=== PATIENT | female | born 1995 | race Caucasian/White ===

== ENCOUNTER → 2020-02-01 | Outpatient (CLI) | payer BC, SELFPAY ==
[2020-02-01 09:32] VITALS: BMI 31.7
[2020-02-01 15:08] LABS: Amphetamine Urine VISTA NEGATIVE (<1000 ng/mL); Barbiturate Urine VISTA NEGATIVE (< 200 ng/mL); Benzodiazepine Urine VISTA NEGATIVE (< 200 ng/mL); Cocaine Urine VISTA NEGATIVE (< 300 ng/mL); Ecstacy Urine VISTA NEGATIVE (< 500 ng/mL); Methadone Urine VISTA NEGATIVE (< 300 ng/mL); PCP Urine VISTA NEGATIVE (< 25 ng/mL); THC Urine VISTA NEGATIVE (< 50 ng/mL); Vista UDS pH Range 6
[2020-02-01 16:54] LABS: Chlamydia Trachomatis by PCR Negative (Negative); Neisserai gonorrhoeae by PCR Negative (Negative); Probe Check PASS; Sample Adequacy Control PASS; Specimen Processing Control PASS
== END | disposition home or self-care (01) ==
LOC: LABSPEC 12:48
PROVIDERS: Referring Provider Obstetrics & Gynecology; Visit Provider Obstetrics & Gynecology
DX: Z34.90 Encounter for supervision of normal pregnancy, unspecified, unspecified trimester (principal)
CPT/HCPCS: 80307; 87086; 87088; 87491; 87591

== ENCOUNTER → 2020-02-12 | Outpatient (CLI) | payer BC, SELFPAY ==
[2020-02-01 09:32] VITALS: BMI 31.7
[2020-02-12 09:28] LABS: Absolute Lymphocyte Count 2.04 X10^3/uL (0.83-4.51); Absolute Neutrophil Count 4.9 X10^3/uL (2.0-7.7); Basophil# 0.05 X10^3/uL; Basophil% 0.7 % (0-1); Eosinophils% 1.3 % (0-5); Hematocrit 38.5 % (37-47); Hemoglobin 13.3 g/dL (12.0-15.0); Lymphocyte # 2.04 X10^3/ul (4.0); Mean Corp Hgb Conc 34.5 g/dL (32-36); Mean Corpuscular Hgb 31.1 pg (27.0-32.0); Mean Corpuscular Volume 90.2 fL (81-99); Mean Platelet Vol. 9.2 fl (6.2-12.0); Monocyte# 0.41 X10^3/uL; Monocyte% 5.4 % (0-10); NRBC Flagged by Analyzer 0 % (0-5); Neutrophil # 4.93 X10^3/uL (2.7-7.7); Neutrophil % 65.3 % (47-70); Platelet Count 307 K/mm3 (150-450); RBC Distribution Width CV 12.4 % (11.6-14.6); RBC Distribution Width SD 40.4 fl (35.1-43.9); Red Blood Count 4.27 M/mm3 (4.2-5.4); White Blood Count 7.6 K/mm3 (4.4-11.0)
[2020-02-12 09:52] LABS: T4 Free Direct 1.29 ng/dL (0.76-1.46); Thyroid Stim Hormone (TSH) 3.76 uIU/mL (0.358-3.74)
[2020-02-12 10:24] LABS: HIV - WCH Non-Reactive (Nonreactive); Hepatitis B Surface Antigen Non-Reactive (Nonreactive); Hepatitis C Antibody Non-Reactive (Nonreactive); Rubella IgG 119.1 IU/mL
[2020-02-15 02:15] LABS: Rapid Plasmin Reagin (RPR) NONREACTIVE (NONREACTIVE)
== END | disposition home or self-care (01) ==
PROVIDERS: PCP Family Medicine; Referring Provider Obstetrics & Gynecology; Visit Provider Obstetrics & Gynecology
DX: O99.281 Endocrine, nutritional and metabolic diseases complicating pregnancy, first trimester (principal); E03.9 Hypothyroidism, unspecified; Z3A.00 Weeks of gestation of pregnancy not specified
CPT/HCPCS: 36415; 84439; 84443; 85025; 86592; 86703; 86762; 86803; 86850; 86900; 86901; 87340

== ENCOUNTER → 2020-03-06 | Outpatient (CLI) | payer BC, SELFPAY ==
[2020-03-01 08:13] VITALS: BMI 31.7
[2020-03-06 09:16] LABS: Glucose Challenge Gest 1H 50g 108 mg/dL (70-140)
== END | disposition home or self-care (01) ==
LOC: PAVLAB 08:05
PROVIDERS: PCP Family Medicine; Referring Provider Obstetrics & Gynecology; Visit Provider Obstetrics & Gynecology
DX: Z34.90 Encounter for supervision of normal pregnancy, unspecified, unspecified trimester (principal)
CPT/HCPCS: 36415; 82950

== ENCOUNTER → 2020-04-25 | Outpatient (CLI) | payer BC, SELFPAY ==
[2020-04-25 08:25] VITALS: BMI 32.1
[2020-04-25 09:12] LABS: Thyroid Stim Hormone (TSH) 3.35 uIU/mL (0.358-3.74)
== END | disposition home or self-care (01) ==
LOC: PAVLAB 08:40
PROVIDERS: Nurse Practitioner Women's Health; PCP Family Medicine; Referring Provider Obstetrics & Gynecology; Visit Provider Obstetrics & Gynecology
DX: Z13.29 Encounter for screening for other suspected endocrine disorder (principal)
CPT/HCPCS: 36415; 84443

== ENCOUNTER → 2020-06-10 08:03 | Outpatient (CLI) | payer BC, SELFPAY ==
[2020-05-20 08:14] VITALS: BMI 32.6
[2020-06-10 08:25] LABS: Absolute Lymphocyte Count 1.81 X10^3/uL (0.83-4.51); Absolute Neutrophil Count 5.9 X10^3/uL (2.0-7.7); Basophil# 0.03 X10^3/uL; Basophil% 0.4 % (0-1); Eosinophil# 0.09 X10^3/uL; Eosinophils% 1.1 % (0-5); Hematocrit 37.7 % (37-47); Hemoglobin 12.6 g/dL (12.0-15.0); Lymphocyte # 1.81 X10^3/ul (4.0); Lymphocyte % 21.7 % (19-41); Mean Corp Hgb Conc 33.4 g/dL (32-36); Mean Corpuscular Hgb 31.3 pg (27.0-32.0); Mean Corpuscular Volume 93.5 fL (81-99); Mean Platelet Vol. 8.6 fl (6.2-12.0); Monocyte# 0.47 X10^3/uL; Monocyte% 5.6 % (0-10); NRBC Flagged by Analyzer 0 % (0-5); Neutrophil # 5.91 X10^3/uL (2.7-7.7); Neutrophil % 70.7 % (47-70); Platelet Count 259 K/mm3 (150-450); RBC Distribution Width CV 12.9 % (11.6-14.6); RBC Distribution Width SD 44.4 fl (35.1-43.9); Red Blood Count 4.03 M/mm3 (4.2-5.4); White Blood Count 8.4 K/mm3 (4.4-11.0)
[2020-06-10 08:49] LABS: Glucose Challenge Gest 1H 50g 89 mg/dL (70-140); Thyroid Stim Hormone (TSH) 3.13 uIU/mL (0.358-3.74)
== END ==
PROVIDERS: PCP Family Medicine; Referring Provider Obstetrics & Gynecology; Visit Provider Obstetrics & Gynecology
DX: O99.280 Endocrine, nutritional and metabolic diseases complicating pregnancy, unspecified trimester (principal); E03.9 Hypothyroidism, unspecified; Z3A.00 Weeks of gestation of pregnancy not specified; Z13.1 Encounter for screening for diabetes mellitus
CPT/HCPCS: 82950; 84443; 85025

== ENCOUNTER → 2020-08-08 08:55 | Outpatient (CLI) | payer BC, SELFPAY ==
[2020-08-08 08:54] VITALS: BMI 34.4
[2020-08-08 09:08] LABS: Absolute Lymphocyte Count 1.68 X10^3/uL (0.83-4.51); Absolute Neutrophil Count 6.5 X10^3/uL (2.0-7.7); Basophil# 0.05 X10^3/uL; Basophil% 0.6 % (0-1); Eosinophil# 0.06 X10^3/uL; Eosinophils% 0.7 % (0-5); Hemoglobin 13.6 g/dL (12.0-15.0); Lymphocyte # 1.68 X10^3/ul (4.0); Lymphocyte % 18.9 % (19-41); Mean Corpuscular Hgb 31.3 pg (27.0-32.0); Mean Platelet Vol. 9.1 fl (6.2-12.0); Monocyte# 0.54 X10^3/uL; Monocyte% 6.1 % (0-10); NRBC Flagged by Analyzer 0 % (0-5); Neutrophil # 6.49 X10^3/uL (2.7-7.7); Neutrophil % 73.1 % (47-70); Platelet Count 267 K/mm3 (150-450); RBC Distribution Width CV 12.7 % (11.6-14.6); RBC Distribution Width SD 42.5 fl (35.1-43.9); Red Blood Count 4.35 M/mm3 (4.2-5.4); White Blood Count 8.9 K/mm3 (4.4-11.0)
[2020-08-08 09:21] LABS: Protein, Urine (Random) < 6.0 mg/dL (<11.9)
[2020-08-08 09:23] LABS: ALB/GLOB Ratio 0.6 RATIO (0.9-2.4); AST(SGOT) 26 U/L (15-37); Alanine Aminotransfer ALT/SGPT 42 U/L (13-56); Albumin, Serum 2.8 g/dL (3.2-5.0); Alkaline Phosphatase 175 U/L (45-117); Anion Gap 5 (5-15); BUN 10 mg/dL (7-18); BUN/Creat Ratio 13.2 RATIO (10-20); Chloride 106 mmol/L (98-107); Creatinine, Serum 0.76 mg/dL (0.55-1.02); EST Glomerular Filtration Rate 97 mL/min (>60); Est Glom Filt Rate - Afr Amer 118 mL/min (>60); Globulin 4.4 g/dL (2.2-4.2); Glucose 70 mg/dL (74-106); Potassium 3.8 mmol/L (3.5-5.1); Protein, Total 7.2 g/dL (6.4-8.2); Sodium Level 138 mmol/L (136-145)
== END ==
PROVIDERS: PCP Family Medicine; Referring Provider Obstetrics & Gynecology; Visit Provider Obstetrics & Gynecology
DX: O13.9 Gestational [pregnancy-induced] hypertension without significant proteinuria, unspecified trimester (principal); O09.90 Supervision of high risk pregnancy, unspecified, unspecified trimester; Z3A.00 Weeks of gestation of pregnancy not specified
CPT/HCPCS: 36415; 80053; 82570; 84156; 85025; 87081

== ENCOUNTER → 2020-08-09 10:11 | Outpatient (CLI) | payer BC, SELFPAY ==
[2020-08-08 08:54] VITALS: BMI 34.4
--- NOTE | 2020-08-09 10:14 | US_ITS ---
STUDY: SECOND AND THIRD TRIMESTER OBSTETRICAL ULTRASOUND - LIMITED REASON FOR EXAM: Female, 25 years old GROWTH LMP: 11/29/2020. PRIOR ULTRASOUND: None. TECHNIQUE: Transabdominal TECHNICAL QUALITY: Adequate. FINDINGS: There is a single intrauterine fetus. The fetus is in a cephalic presentation. There is demonstrated cardiac activity with a heart rate of 132 bpm. There is a normal amniotic fluid volume. The largest amniotic fluid pocket measures 6.7 cm. The amniotic fluid index (CATHY) is 13.6 cm. The placenta is anterior in location and is not low lying. There are Grade 2 placental changes. The cervix was not visualized due to the head positioning. BIOMETRY: BPD: 8.57 cm: 34 weeks, 3 days HC: 31.53 cm: 35 weeks, 2 days AC: 32.3 cm: 36 weeks, 1 days FL: 6.91 cm: 35 weeks, 3 days Age by LMP: 36 weeks, 1 days. JUNO by LMP: 09/05/2020. age by current US: 35 weeks, 2 days. JUNO by current US: 09/11/2020. Estimated weight: 2783 grams, +/- 418 grams, 44 percentile. US/OB Limited With Biometrics IMPRESSION: Single live intrauterine gestation with a mean gestational age of 35 weeks and 2 days. Electronically Signed: Denny Salcedo MD at 15:22 EST , Service support ,
== END ==
PROVIDERS: PCP Family Medicine; Referring Provider Obstetrics & Gynecology; Visit Provider Obstetrics & Gynecology
DX: O13.9 Gestational [pregnancy-induced] hypertension without significant proteinuria, unspecified trimester (principal); Z3A.00 Weeks of gestation of pregnancy not specified
CPT/HCPCS: 76816

== ENCOUNTER → 2020-08-12 15:15 | Outpatient (CLI) | payer BC, SELFPAY ==
[2020-08-12 08:55] VITALS: BMI 33.9
== END ==
PROVIDERS: PCP Family Medicine; Referring Provider Obstetrics & Gynecology; Visit Provider Obstetrics & Gynecology
DX: O09.93 Supervision of high risk pregnancy, unspecified, third trimester (principal); Z3A.00 Weeks of gestation of pregnancy not specified
CPT/HCPCS: 87635; C9803; U0005; U0003

== ENCOUNTER 2020-08-15 06:50 | Inpatient (IN) | payer BC, SELFPAY ==
[2020-08-12 08:55] VITALS: BMI 33.9
[2020-08-15] VITALS (43 sets, daily range): BP systolic 92–141; BP diastolic 53–101; PULSE 58–146; RESP 18; TEMP 36.4–37.1; O2SAT 89–100; BMI 34.0
[2020-08-15] MEDS: Lactated Ringers 1,000 ML 50 ML IV (07:30)
[2020-08-15] MEDS: Oxytocin 30 units/NS 500 ml 30 UNITS/500 ML IV.SOLN IV (07:53)
--- NOTE | 2020-08-15 08:01 | NURSING ---
0750 mitul type and screen, cbc, and cmp from right hand and sent to lab.
--- NOTE | 2020-08-15 08:22 | HP.PCM_ITS ---
- Problem List (1) Encounter for induction of labor Status: Acute (2) Gestational hypertension Status: Acute Qualifiers: Comment: labs, nst, US, home bp cuff, discussed if persistent recommend IOL 37 weeks. (3) History of tetanus, diphtheria, and acellular pertussis booster vaccination (Tdap) Status: Acute Comment: 06/10/20 (4) Hypothyroid Status: Acute Qualifiers: Comment: Dr Lucio PCP manages. tsh q trimester. 04/25:WNL (5) Influenza vaccination administered at current visit Status: Acute Comment: 03/01/2020sc (6) Obesity affecting Status: Acute Qualifiers: Comment: bmi 31. 1 tm glucola/wnl. encouraged healthy weight gain (7) Status: Acute Qualifiers: Comment: genetic, carrier, and ntd screening discussed. genetic low risk; normal anatomy (8) Supervision of high-risk Status: Acute Qualifiers: Comment: PRR JUNO 09/05/20 Girl Rachel, Saurav History and Physical Date of Admission: 08/15/20 Intake Vital Signs 08/12/20 Height 5 ft 4 in 08/12/20 Weight: 197 lb 8 oz 08/12/20 BMI 33.9 08/12/20 BP 120/90 H Intake Visit Reasons: OB/NST per Agency Sales Director Required: No Is patient in pain?: No Allergies No Known Allergies Allergy (Verified 08/12/20 08:55) Medications levothyroxine 50 mcg tablet 50 mcg PO DAILY 02/01/20 [History Confirmed 08/12/20] vitamin #56-iron 35 mg and 5 mg-folic acid 1 mg-dha capsule 1 cap PO DAILY 02/01/20 [History Confirmed 08/12/20] blood pressure monitor See Rx Instructions .ROUTE .MEDSUPPLY #1 ea 08/08/20 [Rx Confirmed 08/12/20] Last Menstral Period: 11/30/19 Zika: Zika virus screening: Negative : No PFSH PFSH Medical History Thyroid disorder (Acute) Surgical History History of wisdom tooth extraction, class II edentulism (Acute) Social History (Updated 08/12/20 @ 09:[address] Kayce Mathis MD) Smoking Status: Never smoker alcohol intake: never substance use type: does not use caffeine: Yes what type of physical activity do you participate in: walking frequency: 1-2 times per week seatbelt use: always do you feel safe at home: Yes additional social history: Kera Oquendo Patient works at [email or web address] in [place] Pregancy History 1 Elective abortions Hx Para Spontaneous abortions Hx # Term Pregnancies Ectopic pregnancies Hx # Pregnancies Multiple births # of living children HPI OB/NST per SM: Details: ISAMAR RIOS is a 25 year old who presents for routine OB visit. OB Visit JUNO Calculator Estimated Delivery Date Method Current WG Current Estimate 09/05/20 LMP (Certain) 36w 4d Other Estimates 09/10/20 Ultrasound #1 35w 6d Expected Delivery Route/Plan if persistent elevated bps recommend IOL 37 Labor Preferences- CB/BF classes: declined labor support person: Saurav labor intervention preferences: no specific pain management options preferred: epidural cut cord/dad catch: cord : yes PP control planned: [] discussed possible routes of delivery and associated risks: discussed possible delivery modalities and possible indications for each including R/B/A of , VAVD, and CS. questions answered. special requests: [] Specific Issue/Plans flu vaccine: given 03/01 tdap vaccine: yes rhogam: na LARC form signed: yes movement and labor precautions reviewed. Problem list reviewed and updated with the most current plan of care details and appropriate orders placed. Relevant counseling for the gestational age provided. Continue routine care and follow up unless otherwise noted in visit notes/problem list details Initial Weight: 185 lb Date EGA Weight BP Urine Prot Glucose FHR FuHt Pres Dilation Effaced St Visit Note 02/01/20 9w 0d 185 lb (+0 oz) 124/88 168 SM- CRL 1.4 cm 03/01/20 13w 1d 185 lb (+0 oz) 130/88 147 SM- no vb cramping. will get 1 tm glucola done. reviewed PNL. flu given. thyroid nl. 03/29/20 17w 1d 186 lb 2 oz (+1 lb 2 oz) 122/82 Negative Negative 140 GP - no LOF, VB, cramping. Not yet feeling movement. Anatomy scan ordered. 04/25/20 21w 0d 187 lb 8 oz (+2 lb 8 oz) 118/80 Negative Negative 141 MH-No Vb, LOF. Anatomy US completed earlier this week. Results not available to our office yet. 05/20/20 24w 4d 190 lb 2 oz (+5 lb 2 oz) 120/80 Negative Negative 06/10/20 27w 4d 192 lb 8 oz (+7 lb 8 oz) 120/78 Negative Negative 142 28 MH-NO VB, LOF. Doing well. Good FM. Tdap, larc, 28 wk labs and tsh 06/27/20 30w 0d 194 lb 6 oz (+9 lb 6 oz) 118/84 Negative Negative 138 30 MH-No VB, LOF or CTX. Good FM 07/08/20 31w 4d 196 lb 6 oz (+11 lb 6 oz) 122/90 Negative Negative 140 32 SM- no vb lof good fm no regular ctx 07/26/20 34w 1d 199 lb (+14 lb) 134/84 Negative Negative 145 34 SM- no vb lof good fm nor egular ctx 08/08/20 36w 0d 201 lb (+16 lb) 122/90 Negative Negative 140 36 Cephalic 3 70 -1 SM- no vb lof good fm no regualr ctx. elevated bps- will get us, labs, nst, home bp checks and fu in office wednesday. if continues to be elevated recommend 37 week IOL 08/12/20 36w 4d 197 lb 8 oz (+12 lb 8 oz) 120/90 Negative Negative 150 36 Cephalic 4 70 -2 GP - no LOF, VB, DFM, ctx . BP still mild range. Scheduled for IOL at 37/0 on 08/15. ACOG First Trimester First Trimester: Desire for , Alcohol, Tobacco Cessation, Illicit/Recreational Drug/Substance Use, Intimate Partner Violence, Barriers to care, Unstable Housing, Communication Barriers, Environmental/Work Hazards, Anticipated Course of Care, Toxoplasmosis Precations, Use of Any medications, Sexual activity, Exercise, Dental Care, Sauna/Hot tub use, Seat Belt use, Childbirth classes/Hospital facilities, , Travel, Indications for US and Screening for Aneuploidy Second Trimester Second Trimester: Signs and Symptoms of Labor, Selecting a care provider, Reproductive Life Planning, Care Planning, Depression/Anxiety and Intimate Partner Violence; discussed Tobacco Cessation Diagnostics Diagnostics Diagnostics Glucose 1 Hr 50 gm 89 mg/dL (70-140) 06/10/20 Hgb 13.6 g/dL (12.0-15.0) 08/08/20 Hct 40.0 % (37-47) 08/08/20 Details: HIV: Urine Culture: Sequential Screen: NIPT Screen: ROS Const Reports system reviewed and no additional complaints, except as docu Eyes Reports system reviewed and no additional complaints, except as docu ENT Reports system reviewed and no additional complaints, except as docu Card Reports system reviewed and no additional complaints, except as docu Resp Reports system reviewed and no additional complaints, except as docu GI Reports system reviewed and no additional complaints, except as docu Reports system reviewed and no additional complaints, except as docu, Denies abnormal vaginal bleeding, Denies painful urination, Denies pelvic pain, Denies vaginal discharge, Denies vaginal odor, Denies vaginal itching Musc Reports system reviewed and no additional complaints, except as docu Skin/Breast Reports system reviewed and no additional complaints, except as docu Neuro Yes system reviewed and no additional complaints, except as docu Psych Reports system reviewed and no additional complaints, except as docu Endo Reports system reviewed and no additional complaints, except as docu Exam Const General: cooperative, healthy appearing, comfortable, no acute distress, well developed, well groomed Nutritional Appearance: average body habitus, well nourished Orientation: alert, awake, oriented x3 [facility]: normal to inspection, normocephalic, atraumatic Eyes Pupils: PERRL, accommodation normal Resp Effort & Inspection: normal respiratory effort, able to speak in complete sentences, symmetric chest movement Cardio Rate: regular rate GI Palpation: soft, no guarding, no masses, nontender Skin General: no rashes or lesions noted, elasticity normal, turgor normal Neuro General: alert, awake, oriented x3 Cranial Nerves: CN's II-XI intact bilaterally, sense of smell intact, PERRL, accommodation normal, EOM intact bilaterally Speech: speech normal Gait: normal gait Psych Appearance: grossly normal, well kempt Mental Status: mental status grossly normal Mood: congruent mood Affect: normal affect Speech and Movement: speech and movement normal Attitude: cooperative Thought Process: normal Thought Content: normal Judgment: judgment good Results POC Urinalysis 2 Dip (Clinic) Office Urine Glucose Negative Last Edit by Adilene Dumont on 08/12/20 09:07 Office Urine Protein Negative Last Edit by Adilene Dumont on 08/12/20 09:07 Assessment & Plan Problems 1. Gestational hypertension, third trimester O13.3 labs, nst, US, home bp cuff, discussed if persistent recommend IOL 37 weeks. 2. History of tetanus, diphtheria, and acellular pertussis booster vaccination (Tdap) Z92.29 06/10/20 3. Influenza vaccination administered at current visit Z23 03/01/2020sc 4. Acquired hypothyroidism E03.9 Dr Lucio PCP manages. tsh q trimester. 04/25:WNL 5. Obesity affecting in third trimester O99.213 bmi 31. 1 tm glucola/wnl. encouraged healthy weight gain 6. 36 weeks gestation of Z3A.36 genetic, carrier, and ntd screening discussed. genetic low risk; normal anatomy 7. Supervision of high risk in third trimester O09.93 PRR JUNO 09/05/20 Girl Rachel, Saurav Plan at 37 weeks admitted for induction of labor for gestational hypertension Patient presents IOL, plan management for with pitocin/AROM. Pain management: epidural. GBS negative. Management of any complications: none I have reviewed the [facility] and made any clinically relevant updates. UPDATE- I have seen the patient and performed any clinically relevant updates to the history and physical exam. Kayce Mathis MD
[2020-08-15 08:25] LABS: ALB/GLOB Ratio 0.7 RATIO (0.9-2.4); AST(SGOT) 23 U/L (15-37); Absolute Lymphocyte Count 1.71 X10^3/uL (0.83-4.51); Absolute Neutrophil Count 6.6 X10^3/uL (2.0-7.7); Alanine Aminotransfer ALT/SGPT 35 U/L (13-56); Albumin, Serum 2.8 g/dL (3.2-5.0); Alkaline Phosphatase 156 U/L (45-117); Anion Gap 7 (5-15); BUN 10 mg/dL (7-18); BUN/Creat Ratio 14.3 RATIO (10-20); Basophil# 0.03 X10^3/uL; Basophil% 0.3 % (0-1); Calcium,Total 8.5 mg/dL (8.5-10.1); Chloride 107 mmol/L (98-107); EST Glomerular Filtration Rate 106 mL/min (>60); Eosinophil# 0.04 X10^3/uL; Eosinophils% 0.4 % (0-5); Est Glom Filt Rate - Afr Amer 129 mL/min (>60); Estimated Creatinine Clearance 104.24 ml/min; Globulin 3.8 g/dL (2.2-4.2); Glucose 76 mg/dL (74-106); Hematocrit 37.1 % (37-47); Hemoglobin 12.7 g/dL (12.0-15.0); Lymphocyte # 1.71 X10^3/ul (4.0); Lymphocyte % 19.2 % (19-41); Mean Corp Hgb Conc 34.2 g/dL (32-36); Mean Corpuscular Hgb 31.2 pg (27.0-32.0); Mean Corpuscular Volume 91.2 fL (81-99); Mean Platelet Vol. 9.5 fl (6.2-12.0); Monocyte# 0.49 X10^3/uL; Monocyte% 5.5 % (0-10); NRBC Flagged by Analyzer 0 % (0-5); Neutrophil # 6.61 X10^3/uL (2.7-7.7); Neutrophil % 74.2 % (47-70); Platelet Count 263 K/mm3 (150-450); Potassium 3.6 mmol/L (3.5-5.1); Protein, Total 6.6 g/dL (6.4-8.2); RBC Distribution Width CV 12.8 % (11.6-14.6); RBC Distribution Width SD 42.1 fl (35.1-43.9); Red Blood Count 4.07 M/mm3 (4.2-5.4); Sodium Level 136 mmol/L (136-145); White Blood Count 8.9 K/mm3 (4.4-11.0)
[2020-08-15 08:54] LABS: Protein, Urine (Random) < 6.0 mg/dL (<11.9)
[2020-08-15] MEDS: Lactated Ringers 500 ML 999 ML IV ×2 (11:03→11:53)
[2020-08-15] MEDS: fentaNYL-bupivacaine (epidural) 100 ML BAG EPIDURAL ×2 (11:50→16:15)
[2020-08-15] MEDS: Oxytocin 30 units/NS 500 ml 30 UNITS/500 ML IV.SOLN 334 UNITS IV (18:31)
--- NOTE | 2020-08-15 18:54 | PCM.OPRPT ---
Problem List (1) Encounter for induction of labor Status: Acute (2) Gestational hypertension Status: Acute Qualifiers: Comment: labs, nst, US, home bp cuff, discussed if persistent recommend IOL 37 weeks. (3) History of tetanus, diphtheria, and acellular pertussis booster vaccination (Tdap) Status: Acute Comment: 06/10/20 (4) Hypothyroid Status: Acute Qualifiers: Comment: Dr Lucio PCP manages. tsh q trimester. 04/25:WNL (5) Influenza vaccination administered at current visit Status: Acute Comment: 03/01/2020sc (6) Obesity affecting Status: Acute Qualifiers: Comment: bmi 31. 1 tm glucola/wnl. encouraged healthy weight gain (7) Status: Acute Qualifiers: Comment: genetic, carrier, and ntd screening discussed. genetic low risk; normal anatomy (8) Supervision of high-risk Status: Acute Qualifiers: Comment: PRR JUNO 09/05/20 Girl Rachel, Saurav Vaginal Delivery Maternal Presentation: Medically Indicated Induction 25-year-old G1, P0 at 37 weeks gestation admitted for induction labor for gestational hypertension. Patient was induced with Pitocin followed by AROM. Method of Induction: Pitocin, Amniotomy Medical Reason for Induction: Gestational Hypertension Amniotic Membrane Rupture Type: Artificial Amniotic Fluid Description: Clear Final JUNO: 09/05/20 Gestational age: 37 Weeks and 0 Days Date of Procedure: 08/15/20 Pre-Operative Diagnosis: Term , induction labor for gestational hypertension Post-Operative Diagnosis: Same Surgery/ Procedure Performed: Vacuum Assisted Vaginal Delivery Type of Anesthesia: Epidural Description of Procedure: Patient was pushing with deep variable decelerations with pushing. Recommendation was made to proceed with a vacuum assisted vaginal delivery. The maternal bladder had just been changed and Peters catheter was removed. Additional help was called to the room. Nursery nurse was called to the room. Anesthesia level was found to be adequate. Hard top Kiwi vacuum applied without difficulty and placement was noted to be correct. Suction was never increased beyond the green line. No rocking or excessive force was used. Small midline episiotomy was performed to allow adequate space for delivery of the head. The head delivered with 2 contractions to pulls. The head in the SANDRA presentation. The head was delivered atraumatically and a loose nuchal cord ?1 was identified and easily reduced over the 's head. The anterior and posterior shoulders delivered without complication followed by the rest of the and the infant was placed on the maternal abdomen. Delayed cord clamping was employed for approximately 60 seconds. Cord was clamped and cut and gentle traction was applied to the cord and the placenta delivered spontaneously immediately following it was noted to be intact with three-vessel cord. The perineum and vagina were inspected and a midline second-degree perineal laceration was noted and repaired in the standard fashion using 3-0 Vicryl repeat suture. EBL was 200 cc. Patient and tolerated delivery well. Presentation: Vertex, SANDRA Placental Delivery Description: Spontaneous Placenta Disposition: [facility] Cord Vessel Description: 3 Vessels Nuchal Cord Compression: Without compression Cord Entanglement: Around neck x 1, loose Drain: Peters to straight drain Estimated Blood Loss: 200 A gender: Female Episiotomy Description: Midline, Perineal Extension/lac, 2nd degree Medications given after delivery: IV Pitocin Complications: None Multi Select Codes - Urinary/Genital Urinary/Genital CPT Codes: 41899 Vaginal Delivery [facility] pkg - Vacuum-assisted vaginal delivery
--- NOTE | 2020-08-15 19:00 | DCINST_ITS ---
Discharge Diet: No Restrictions Discharge Activity: Return to Normal Activity, May not drive while taking narcotic pain medications., May Shower May resume sexual activity in: 4-6 weeks Additional Activity Instructions:: Nothing in the vagina for 4-6 weeks. You may return to work/school in 6 weeks. Call your doctor if your incision/area has: Continuous Slow Oozing, Sudden Increased Bleeding, Increased Pain/ Swelling, Increased Redness, Foul Smelling Discharge Additional Instructions: If you experience any of the following, contact your healthcare provider. * Bleeding that soaks a pad every hour for 2 hours * Fever 100.4 or higher * Unrelieved incision or abdominal pain * Swelling, redness, discharge or bleeding from your incision or episiotomy site * Your incision begins to separate * Problems urinating (including inability to urinate or burning while urinating). * Visual changes * Severe headache * Flu-like symptoms * Pain or redness in one of both of your breasts * Pain, warmth, tenderness or swelling in your legs, especially the calf area * Frequent nausea and vomiting * Symptoms of depression or anxiety If you experience any of the following, call 911 or go to the nearest Emergency Room. * Chest pain * Problems breathing * Seizure activity * Partial or complete paralysis of a body part, slurred speech, weakness or drooping of the face, or a sudden inability to walk or hold your balance Allergies/Adverse Reactions: Allergies No Known Allergies Allergy (Verified 08/12/20 08:55) Medications to take at Discharge levothyroxine 50 mcg tablet 50 mcg PO DAILY 02/01/20 vitamin #56-iron 35 mg and 5 mg-folic acid 1 mg-dha capsule 1 cap PO DAILY 02/01/20 blood pressure monitor See Rx Instructions .ROUTE .MEDSUPPLY #1 ea 08/08/20 When: Call to make an appointment with your doctor in 6 weeks. If you had elevated Blood Pressure or 4th degree laceration you will need to be seen in 2 weeks. Primary Care Physician: Eligio Lucio MD [Primary Care Provider] - Test Results: Test results from this visit will be discussed in further detail at your follow- up appointment, if applicable.
[2020-08-15] MEDS: 0.9% Saline Lock 10 ML Syringe IV (21:50)
[2020-08-15] MEDS: Naproxen 250 MG Tablet 500 MG PO (22:52)
[2020-08-16] VITALS (14 sets, daily range): BP systolic 108–131; BP diastolic 71–85; PULSE 75–94; RESP 16–20; TEMP 36.6–37; O2SAT 97–99
[2020-08-16] MEDS: Acetaminophen 500 MG Tablet 1000 MG PO (02:07)
[2020-08-16] MEDS: Senna/Docusate Sodium 1 Tablet PO (02:07)
[2020-08-16] MEDS: Levothyroxine 50 MCG Tablet PO (06:38)
--- NOTE | 2020-08-16 07:59 | PN.OBGYN_ITS ---
Patient Problems: Active and Suspected Problems (Last Reviewed 08/12/20 @ 08:55 by Adilene Dumont) Encounter for induction of labor (Acute) Gestational hypertension (Acute) labs, nst, US, home bp cuff, discussed if persistent recommend IOL 37 weeks. History of tetanus, diphtheria, and acellular pertussis booster vaccination (Tdap) (Acute) 06/10/20 Influenza vaccination administered at current visit (Acute) 03/01/2020sc Hypothyroid (Acute) Dr Lucio PCP manages. tsh q trimester. 04/25:WNL Obesity affecting (Acute) bmi 31. 1 tm glucola/wnl. encouraged healthy weight gain (Acute) genetic, carrier, and ntd screening discussed. genetic low risk; normal anatomy Supervision of high-risk (Acute) PRR JUNO 09/05/20 Girl Rachel, Saurav Subjective: Patient doing well without complaints. Tolerating PO. Ambulating and voiding without difficulty. Bottle feeding well. Denies chest pain, shortness of breath, calf pain/swelling, fevers, chills, lightheadedness. - Physical Exam Vitals/I&O's: Vital Signs Temp Pulse Resp BP Pulse Ox 98.1 F 86 16 108/72 97 08/16/20 06:38 08/16/20 06:39 08/16/20 06:38 08/16/20 06:39 08/15/20 20:50 Oxygen Delivery Method Room Air Weight: 198 lb 3.129 oz Body Mass Index (BMI) 34.0 Intake and Output for Last 24 Hours 08/14/20 08/15/20 08/16/20 23:59 23:59 23:59 Intake Total 2530.44 / 2530.44 Output Total 400 / 400 800 / 800 Balance 2130.44 / 2130.44 -800 / -800 General: Alert, Oriented x3, Cooperative, No apparent distress, Well developed, Well nourished HEENT: Atraumatic, PERRLA, EOMI, Normocephalic Neck: Supple, No JVD Lungs: Normal air movement Cardiovascular: Regular rate Abdomen: Soft, Non Tender, Non-Distended, - - fundus firm Extremities: No edema, No Calf Tenderness Neurological: Cranial nerves II-XII grossly intact, Neuro grossly intact Psych/Mental Status: Normal Affect, Appropriate Laboratory Results 08/15/20 07:50: WBC 8.9, RBC 4.07 L, Hgb 12.7, Hct 37.1, MCV 91.2, MCH 31.2, MCHC 34.2, RDW Std Deviation 42.1, RDW Coeff of Haydee 12.8, Plt Count 263, MPV 9.5, Immature Gran % (Auto) 0.400, Neut % (Auto) 74.2 H, Lymph % (Auto) 19.2, Towner % (Auto) 5.5, Eos % (Auto) 0.4, Baso % (Auto) 0.3, Absolute Neuts (auto) 6.6, Absolute Lymphs (auto) 1.71, Nucleated RBC % 0 08/15/20 07:50: Blood Type A POSITIVE, Antibody Screen NEGATIVE 08/15/20 07:50: Sodium 136, Potassium 3.6, Chloride 107, Carbon Dioxide 22.0, Anion Gap 7, BUN 10, Creatinine 0.70, Estim Creat Clear Calc 104.24, Est GFR (MDRD) Af Amer 129, Est GFR (MDRD) Non-Af 106, BUN/Creatinine Ratio 14.3, Glucose 76, Calcium 8.5, Total Bilirubin 0.40, AST 23, ALT 35, Alkaline Phosphatase 156 H, Total Protein 6.6, Albumin 2.8 L, Globulin 3.8, Albumin/Globulin Ratio 0.7 L 08/15/20 08:25: U Random Total Protein < 6.0, Urine Creatinine 31.50, Protein/Creatinin Ratio TNP Current Medications Acetaminophen (Acetaminophen 500 Mg Tablet) 1,000 mg PO Q8H PRN PRN PRN Reason: Pain Score 1-3 Last Admin: 08/16/20 02:07 Dose: 1,000 mg Documented by: Bisacodyl (Bisacodyl 10 Mg Suppository) 10 mg RECTAL UD PRN PRN Reason: If no BM Dibucaine (Dibucaine 30 Gm Tube) 1 applic TOPICAL TID PRN PRN; Protocol PRN Reason: Discomfort Hydrocortisone (Hydrocortisone 2.5% Crm) 1 applic TOPICAL TID PRN PRN; Protocol PRN Reason: Discomfort Levothyroxine Sodium (Levothyroxine 50 Mcg Tablet) 50 mcg PO DAILY@0600 IMTIAZ Last Admin: 08/16/20 06:38 Dose: 50 mcg Documented by: Methylergonovine Maleate (Methylergonovine 0.2 Mg/Ml Ampul) 0.2 mg IM X1 PRN PRN Reason: Excess bleeding/uterine atony Naproxen (Naproxen 250 Mg Tablet) 500 mg PO Q8H PRN PRN PRN Reason: Pain Score 1-3 Last Admin: 08/15/20 22:52 Dose: 500 mg Documented by: Ondansetron HCl (Ondansetron 4 Mg/2 Ml Vial) 4 mg IV Q4H PRN PRN PRN Reason: Nausea Oxycodone HCl (Oxycodone 5 Mg Tablet) 5 - 10 mg PO Q4H PRN PRN PRN Reason: Pain Score 4-10 Senna/Docusate Sodium (Senna/Docusate Sodium 1 Tablet) 1 - 2 tablet PO DAILY PRN PRN PRN Reason: Constipation Last Admin: 08/16/20 02:07 Dose: 1 tablet Documented by: Simethicone (Simethicone 80 Mg Tablet) 80 mg PO PCHS PRN PRN Reason: Indigestion/Stomach pain Sodium Chloride (0.9% Saline Lock 10 Ml Syringe) 5 - 15 ml IV UD PRN PRN Reason: SALINE FLUSH Last Admin: 08/15/20 21:50 Dose: 10 ml Documented by: Medical Necessity - Tobacco Use Smoking Status: Former smoker Assessment/Plan All Active Problems (Last Reviewed 08/12/20 @ 08:55 by Adilene Dumont) Encounter for induction of labor (Acute) 36 weeks gestation of (Acute) Gestational hypertension (Acute) History of tetanus, diphtheria, and acellular pertussis booster vaccination (Tdap) (Acute) Influenza vaccination administered at current visit (Acute) Hypothyroid (Acute) Obesity affecting (Acute) (Acute) Supervision of high-risk (Acute) s/p PPD # 1 1. routine post delivery care 2. breast feeding- support given 3. rh positive 4. rubella immune
[2020-08-16] MEDS: Naproxen 250 MG Tablet 500 MG PO (14:31)
== END 2020-08-16 20:50 | disposition home or self-care (01) | DRG 807 ==
PROVIDERS: Admitting Provider Obstetrics & Gynecology; PCP Family Medicine; Visit Provider Obstetrics & Gynecology
DX: O13.4 Gestational [pregnancy-induced] hypertension without significant proteinuria, complicating childbirth (principal); Z37.0 Single live birth; O99.284 Endocrine, nutritional and metabolic diseases complicating childbirth; E03.9 Hypothyroidism, unspecified; O69.81X0 Labor and delivery complicated by cord around neck, without compression, not applicable or unspecified; O70.1 Second degree perineal laceration during delivery; Z3A.37 37 weeks gestation of pregnancy
CPT/HCPCS: 59025; 59050; 80053; 82570; 84156; 85025; 86850; 86900; 86901; 99218; J7120; A4216; G0378

== ENCOUNTER → 2022-01-12 | Outpatient (CLI) | payer OTHER, SELFPAY ==
[2022-01-16 22:19] LABS: HPV Reflexed? NOT INDICATED
== END | disposition home or self-care (01) ==
LOC: LABSPEC 16:12
PROVIDERS: PCP Family Medicine; Visit Provider Nurse Practitioner Women's Health
DX: Z12.4 Encounter for screening for malignant neoplasm of cervix (principal)
CPT/HCPCS: 88175; G0145

== ENCOUNTER 2022-11-23 09:32 | Emergency (ER) | payer OTHER, SELFPAY ==
[2022-11-23 09:33] VITALS: BP 137/107; PULSE 116; RESP 18; TEMP 36.6; O2SAT 100; BMI 32.6
--- NOTE | 2022-11-23 09:37 | EX.ED.DYSGE1 ---
HPI History of Present Illness Chief Complaint: Sore Throat [facility] Medical History Gestational hypertension Thyroid disorder Home Medications levothyroxine 50 mcg tablet 50 mcg PO DAILY Check with primary doctor 02/01/20 [History Last Taken 08/14/20] multivitamin 1 tablet PO DAILY 09/23/20 [History Last Taken Unknown] desogestrel-e.estradiol 0.15 mg-0.02 mg(21)/e.estrad 0.01 mg(5) tablet (Kariva (28)) 1 tab PO QDAY #84 tabs 01/12/22 [Rx Last Taken Unknown] Allergy/AdvReac Type Severity Reaction Status Date / Time No Known Allergies Allergy Verified 11/23/22 09:32 Surgical History History of wisdom tooth extraction, class II edentulism Social History Smoking Status: Never smoker alcohol intake: never substance use type: does not use caffeine: Yes what type of physical activity do you participate in: walking frequency: 1-2 times per week seatbelt use: always do you feel safe at home: Yes additional social history: Kera Oquendo Patient works at [employer] in [employer] EXAM Physical Exam Const Vital Signs: 11/23/22 09:33 Temperature 97.8 F Temperature Source Temporal Pulse Rate 116 H Respiratory Rate 18 Blood Pressure 137/107 H Blood Pressure Mean 117 Pulse Ox 100 Oxygen Delivery Method Room Air [facility] MDM MDM Narrative Medical decision making narrative: HISTORY OF PRESENT ILLNESS: 27-year-old female here with sore throat. States she has had 3 days of sore throat. Notes marked tonsillar swelling. States she had 1 day of clindamycin. Denies any neck stiffness drooling or fever. Denies any immunocompromising states. REVIEW OF SYSTEMS: Pertinent positives: Sore throat Pertinent negatives: Drooling, neck stiffness, difficulty swallow PHYSICAL EXAM: Nursing triage notes reviewed, Vital signs reviewed Constitutional: please see mdm HENT: MMM, white exudates noted, there is a very enlarged right tonsil, right tonsil touches uvula, uvula slightly deviated to the left, patient speaking in full sentences, controlling secretions appears comfortable. No submandibular edema Eyes: Pupils equal round and reactive to light, Extraocular muscles intact Neck: No stridor, no JVD, full neck ROM Lungs: Clear to auscultation, No wheezing or rales. No increased work of breathing, no conversational dyspnea, no accessory muscle use, no nasal flaring. No respiratory distress noted Heart: Regular rate and rhythm, No murmurs, No rubs and No gallops, 2+ distal pulses (radial, femoral, posterior tibial) in all extremities MEDICAL DECISION MAKING: Chief Complaint: Sore throat External records reviewed: No recent ED visits or hospitalizations, no records via classic Factors affecting care: Hypothyroidism Social determinants of health: Former smoker History obtained from others: Consults: ALL IMAGES HAVE BEEN PERSONALLY REVIEWED AND INTERPRETED BY MYSELF. MDM Narrative: Patient was initially tachycardic, otherwise hemodynamically stable, afebrile and nontoxic-appearing. Patient was controlling secretions, no neck stiffness or submandibular edema on exam. Exam concerning for STRUCTURES TECHNICIAN I considered the following differential diagnosis: STRUCTURES TECHNICIAN, RPA, Lemierre's syndrome, Ludewig's angina I obtained a CT scan of the patient's neck to rule out deep neck space infection. Gave anti-inflammatories, antibiotics for empiric therapy (IV Unasyn). Gave [address] scan showed no evidence of tonsillar abscess. Patient is likely suffering from a severe case of bacterial pharyngitis. No evidence of Lemierre's syndrome, Ludewig's angina, STRUCTURES TECHNICIAN or RPA. She was encouraged to continue take clindamycin. Total critical care time today provided was at least 0 minutes. This excludes separately billable procedures. There was a high probability of clinically significant/life threatening deterioration in the patient's condition which required my urgent intervention. Shared decision making: I will have a discussion with the patient and or visitors regarding risk/benefits of further testing or admission. They will be made aware of of the risk/benefits inherent in this decision they will be given the opportunity to voice understanding. Lab Data Attestation: I reviewed the patient's lab results. Lab results narrative: CBC without leukocytosis, severe anemia, no thrombocytopenia. Urine test negative Labs: Laboratory Results - last 24 hr 11/23/22 11/23/22 11/23/22 10:30 10:30 10:36 WBC 10.2 RBC 4.60 Hgb 13.9 Hct 40.8 MCV 88.7 MCH 30.2 MCHC 34.1 RDW Std Deviation 41.1 RDW Coeff of [place] 12.6 Plt Count 317 MPV 8.8 Immature Gran % (Auto) 0.300 Neut % (Auto) 72.2 H Lymph % (Auto) 17.7 L [place] % (Auto) 8.9 Eos % (Auto) 0.5 Baso % (Auto) 0.4 Absolute Neuts (auto) 7.4 Absolute Lymphs (auto) 1.80 Nucleated RBC % 0 Sodium 142 Potassium 3.7 Chloride 108 H Carbon Dioxide 23.0 Anion Gap 11 BUN 7 Creatinine 0.72 Estim Creat Clear Calc 99.56 Est GFR (MDRD) Af Amer 123 Est GFR (MDRD) Non-Af 102 BUN/Creatinine Ratio 9.8 L Glucose 93 Calcium 8.9 Urine Test Negative Radiography Diagnostic Testing: Clinical Impression(s) from Imaging Studies Soft Tissue Neck CT 11/23/22 10:01 IMPRESSION: Bilateral tonsillar enlargement without evidence of abscess. Electronically Signed: Evangelist Topete MD at 11:12 EDT , Discharge Plan Triage Chief Complaint: Sore Throat ED Provider: Marky Higginbotham Dx/Rx/DC Orders Clinical Impression: Acute tonsillitis Instructions: ED Tonsillitis Prescriptions: No Action levothyroxine 50 mcg tablet 50 mcg PO DAILY multivitamin Tablet 1 tablet PO DAILY desog-e.estradiol/e.estradiol [Kariva (28)] 0.15-0.02 mgx21 /0.01 mg x 5 tablet 1 tab PO QDAY Qty: 84 4RF Stand Alone Forms: ED Work / School Excuse Primary Care Provider: Eligio Lucio Referrals: Eligio Lucio MD [Primary Care Provider] - Activity Restrictions/Additional Instructions: Thank you for trusting us with your care today! Please take Tylenol (2 pills, 650 mg), ibuprofen (2 pills, 400 mg) every 6 hours as needed for pain and fever control. Please continue to take clindamycin as prescribed. Please return to the emergency department if your symptoms change or worsen. Specifically if you develop difficulty swallowing, drooling, or if you are unable to take your antibiotics by mouth. Please follow with your primary care physician for further outpatient evaluation and management. Disposition Disposition: Home, Self Care
--- NOTE | 2022-11-23 10:01 | CT_ITS ---
EXAM: CT NECK WITH INTRAVENOUS CONTRAST CLINICAL INDICATION: right tonsilar swelling, edema question INSTRUMENT ENGINEER TECHNIQUE: Helically acquired images were obtained of the neck with intravenous contrast. This CT exam was performed using one or more of the following dose reduction techniques: automated exposure control, adjustment of the mA and/or kV according to patient size, and/or use of iterative reconstruction technique. CONTRAST: [id number] 100ML COMPARISON: No relevant prior studies available. FINDINGS: NASOPHARYNX: Normal. SUPRAHYOID NECK: Bilateral tonsillar enlargement somewhat more prominent on the right than left. No evidence of a peritonsillar abscess. INFRAHYOID NECK: Normal. The larynx, hypopharynx and supraglottis are unremarkable. SUBMANDIBULAR/PAROTID GLANDS: Salivary glands are normal in size. THYROID: Normal. No thyroid nodules or calcification. BONES/JOINTS: No suspicious lytic or blastic abnormality. SOFT TISSUES: Normal. VASCULATURE: No acute findings. LYMPH NODES: Normal. No lymphadenopathy. LUNG APICES: Unremarkable as visualized. CT/Soft Tissue Neck WITH Contrast IMPRESSION: Bilateral tonsillar enlargement without evidence of abscess. Electronically Signed: Evangelist Topete MD at 11:12 EDT ,
[2022-11-23] MEDS: Ketorolac 15 MG/ML Vial IV (10:17)
[2022-11-23] MEDS: dexAMETHasone 4 MG/ML Vial IV (10:17)
[2022-11-23 10:37] LABS: Absolute Neutrophil Count 7.4 X10^3/uL (2.0-7.7); Basophil# 0.04 X10^3/uL; Basophil% 0.4 % (0-1); Eosinophil# 0.05 X10^3/uL; Eosinophils% 0.5 % (0-5); Hematocrit 40.8 % (37-47); Hemoglobin 13.9 g/dL (12.0-15.0); Lymphocyte % 17.7 % (19-41); Mean Corp Hgb Conc 34.1 g/dL (32-36); Mean Corpuscular Hgb 30.2 pg (27.0-32.0); Mean Corpuscular Volume 88.7 fL (81-99); Mean Platelet Vol. 8.8 fl (6.2-12.0); Monocyte# 0.91 X10^3/uL; Monocyte% 8.9 % (0-10); NRBC Flagged by Analyzer 0 % (0-5); Neutrophil # 7.35 X10^3/uL (2.7-7.7); Neutrophil % 72.2 % (47-70); Platelet Count 317 K/mm3 (150-450); RBC Distribution Width CV 12.6 % (11.6-14.6); RBC Distribution Width SD 41.1 fl (35.1-43.9); White Blood Count 10.2 K/mm3 (4.4-11.0)
[2022-11-23 10:48] LABS: Internal QC Validated? YES +Cl - CLEAR BKGD; Pregnancy, Urine Negative Negative
[2022-11-23 12:03] LABS: Anion Gap 11 (5-15); BUN 7 mg/dL (7-18); BUN/Creat Ratio 9.8 RATIO (10-20); Calcium,Total 8.9 mg/dL (8.5-10.1); Chloride 108 mmol/L (98-107); Creatinine, Serum 0.72 mg/dL (0.55-1.02); EST Glomerular Filtration Rate 102 mL/min (>60); Est Glom Filt Rate - Afr Amer 123 mL/min (>60); Estimated Creatinine Clearance 99.56 ml/min; Glucose 93 mg/dL (74-106); Potassium 3.7 mmol/L (3.5-5.1); Sodium Level 142 mmol/L (136-145)
== END 2022-11-23 12:24 | disposition home or self-care (01) ==
PROVIDERS: Emergency Provider Emergency Medicine; PCP Family Medicine; Visit Provider Emergency Medicine
DX: J03.90 Acute tonsillitis, unspecified (principal); E03.9 Hypothyroidism, unspecified; Z87.891 Personal history of nicotine dependence
CPT/HCPCS: 70491; 80048; 81025; 85025; 96361; 96365; 96375; 99282; J7030; Q9967; A4216; J0295